=== PATIENT | male | born 2000 | race Caucasian/White ===

== ENCOUNTER 2023-03-17 17:29 | Emergency (ER) | payer OTHER ==
[~2023-03-17] VITALS: Ht 162.5 cm; Wt 49.9 kg
== END 2023-03-17 18:01 | disposition home or self-care (01) ==
LOC: ED 17:29
DX: S09.90XA Unspecified injury of head, initial encounter (principal); E86.0 Dehydration; W19.XXXA Unspecified fall, initial encounter; Y93.61 Activity, american tackle football; Y92.39 Other specified sports and athletic area as the place of occurrence of the external cause; Y99.8 Other external cause status